=== PATIENT | female | born 2005 | race Asian ===

== ENCOUNTER 2024-01-27 07:08 | Emergency (ER) | payer OTHER ==
[~2024-01-27] VITALS: Ht 149.9 cm; Wt 55.7 kg
[2024-01-27] MEDS ORDERED: IBUP-1114 PO (07:18)
[2024-01-27] MEDS ORDERED: ACET-683 PO (07:19)
[2024-01-27 08:42] LABS: BASO % 0.4 % (0.0-1.0); EOS # 0.6 10^3/uL (0.0-0.5); EOS % 11.2 % (0.0-3.0); HEMATOCRIT 32.7 % (36.0-47.0); LYMPH # 0.9 10^3/uL (1.5-5.0); LYMPH % 18.5 % (24.0-44.0); MEAN CORPUSCULAR HEMOGLOBIN 28.1 pg (27.0-33.0); MEAN CORPUSCULAR HGB CONC 33.6 g/dl (32.0-36.5); MEAN CORPUSCULAR VOLUME 83.6 fl (80.0-96.0); MONO # 0.3 10^3/uL (0.0-0.8); MONO % 5.5 % (2.0-8.0); NEUTROPHILS # 3.3 10^3/uL (1.5-8.5); PLATELET COUNT, AUTOMATED 176 10^3/uL (150-450); RED BLOOD COUNT 3.91 10^6/uL (4.00-5.40); WHITE BLOOD COUNT 5.1 10^3/uL (4.0-10.0)
[2024-01-27] MEDS: ACETAMINOPHEN 500 MG TAB PO ONE (08:42)
[2024-01-27] MEDS: NS 1,000 ML IV ONE (08:43)
[2024-01-27 09:12] LABS: BLOOD UREA NITROGEN 7 MG/DL (9-23); CALCIUM LEVEL 8.1 MG/DL (8.5-10.1); CARBON DIOXIDE LEVEL 23 MMOL/L (20-31); CHLORIDE LEVEL 108 MMOL/L (98-107); CREATININE FOR GFR 0.63 MG/DL (0.55-1.30); GLUCOSE, FASTING 99 MG/DL (60-100); POTASSIUM SERUM 3.4 MMOL/L (3.5-5.1); SODIUM LEVEL 138 MMOL/L (136-145)
[2024-01-27 09:29] LABS: ERYTHROCYTE SEDIMENTATION RATE 51 mm/hr (0-20)
[2024-01-27] MEDS: PENICILLIN V POTASSIUM 500 MG TAB PO ONE (11:16)
[2024-01-27] MEDS: KETOROLAC 30 MG/ML 1ML VIAL IV ONE (11:19)
[2024-01-27] MEDS ORDERED: PENI500T PO (12:31)
[2024-01-27 12:40] VITALS: BP 106/56; TEMP 97.4; O2SAT 98
== END 2024-01-27 12:46 | disposition home or self-care (01) ==
LOC: M ED 07:08
DX: J02.0 Streptococcal pharyngitis (principal); R21 Rash and other nonspecific skin eruption; F17.290 Nicotine dependence, other tobacco product, uncomplicated; Z79.1 Long term (current) use of non-steroidal anti-inflammatories (NSAID); Z79.2 Long term (current) use of antibiotics
CPT/HCPCS: 80048; 85025; 85652; 86140; 87486; 87581; 87633; 87798; 87880; 96374; 99284; J1885